=== PATIENT | male | born 1940 | race Caucasian/White ===

== ENCOUNTER 2019-01-14 14:44 | Inpatient (IN) ==
--- NOTE | 2019-01-14 16:03 | ED EKG INTERP ---
This chart was entered by Sandy Dominguez Scribe, acting as scribe for Vesna Tan MD. EKG Interpretation - EKG Time of EKG reading by physician:: 15:10 EKG Read and Signed by:: Vesna Tan EKG Interpretation (*Must complete 3 of following elements*): Abnormal ( inferior infarct, age undetermined; possible anterior infarct, age undetermined) Rate: 62 Rhythm: undetermined rhythm Comments: minimal voltage criteria for LVH, may be normal variant; Attestation - Physician/ FAUSTO Attestation The physician spent face to face time with patient:: No Advanced Practice Provider documentation review:: Supervising physician onsite and consulted in the evaluation and care of this patient. The physician did not have a face to face encounter with the patient. This chart was documented by the indicated scribe, (Sandy Dominguez Scribe) and accurately reflects the services I performed and decisions made by me, Vesna Tan MD, as attested by the provider's signature.
[2019-01-14] MEDS ORDERED: ASPIRIN PO ONE (16:20)
--- NOTE | 2019-01-14 16:31 | EKG Report ---
Test Performed on : 01/14/2019 3:50:02 PM Test Reason : CHEST PAIN Blood Pressure : / mmHG Vent. Rate : 056 BPM Atrial Rate : 062 BPM P-R Int : 000 ms QRS Dur : 090 ms QT Int : 406 ms P-R-T Axes : 000 -08 011 degrees QTc Int : 391 ms Undetermined rhythm Minimal voltage criteria for LVH, may be normal variant Inferior infarct , age undetermined Possible Anterior infarct , age undetermined Abnormal ECG When compared with ECG of 10-SEP-2018 15:38, Current undetermined rhythm precludes rhythm comparison, needs review Borderline criteria for Anterior infarct are now present Inferior infarct is now present Unconfirmed Result
[2019-01-14 16:37] LABS: INR 0.92; PROTIME 13.1 Seconds (11.0-16.0); PTT 28.6 Seconds (22.3-41.8)
[2019-01-14 16:38] LABS: BASO# 0.02 X1000 (0.0-0.2); BASO% 0.3 % (0.0-0.8); EOS# 0.13 X1000 (0.0-0.7); EOS% 1.7 % (0.0-10.0); HEMATOCRIT 43.1 % (42.0-52.0); HEMOGLOBIN 14.8 g/dL (14.0-18.0); LYMPH# 3.02 X1000 (1.2-3.4); LYMPH% 39.7 % (20.5-51.1); MCH 31.1 PG (27-31); MCHC 34.3 g/dL (33-37); MCV 90.5 FL (81-99); MONO% 11.8 % (1.7-9.3); MPV 9.8 FL (7.4-10.4); NEUT# 3.53 X1000 (1.4-6.5); NEUT% 46.5 % (42.2-75.2); PLT 214 X1000 (130-400); RBC 4.76 XMIL (4.7-6.1); RDW 12.3 % (11.5-14.5)
[2019-01-14 16:39] LABS: AGAP 12; ALB/GLOB RATIO 1.9; ALBUMIN 4.3 g/dL (3.5-5.0); ALKALINE PHOSPHATASE 68 U/L (32-122); BUN 16 mg/dL (8-22); CALCIUM 9.2 mg/dL (8.8-10.2); CHLORIDE 95 mmol/L (98-107); COSMO 267; CREATININE 1.1 mg/dL (0.7-1.2); ESTIMATED GFR > 60; GLUCOSE 93 mg/dL (70-104); GOT 25 U/L (10-34); GPT 26 U/L (10-44); POTASSIUM 5.1 mmol/L (3.5-5.1); SODIUM 133 mmol/L (136-145); TCO2 26 mmol/L (25-35); TOTAL BILIRUBIN 0.23 mg/dL (0.20-1.00); TOTAL PROTEIN 6.6 g/dL (6.3-8.3)
[2019-01-14 16:41] LABS: CK PROFILE 226 U/L (24-204)
[2019-01-14 16:58] LABS: CK-MB 11.32 ng/mL (0.0-5.0)
[2019-01-14] MEDS ORDERED: NITROGLYCERIN 50 MG/D5W 50 MG/250 ML IV.SOLN IV SCH (17:15)
--- NOTE | 2019-01-14 17:23 | Diag Imaging Result Doc PS360 ---
EXAM: CHEST-2 VIEWS HISTORY: CHEST PAIN TECHNIQUE: Chest two views COMPARISON: 10/10/2017 FINDINGS: The lungs are hyperexpanded the heart is not enlarged. The vessels are not distended. Sternal wires are present. There are no infiltrates. No pleural effusions. IMPRESSION: No acute abnormality. Electronically signed by Jimmy Roblero 01/14/2019 5:21 PM
--- NOTE | 2019-01-14 17:47 | PROVIDER DOCUMENTATION ---
HPI-Chest Pain - General Chief Complaint: Chest Pain Stated Complaint: CHEST PAIN Time Seen by Provider: 01/14/19 16:17 Source: patient Allergies/Adverse Reactions: Patient Allergies Allergy/AdvReac Type Severity Reaction Status Date / Time No Known Allergies Allergy Verified 01/14/19 19:37 Home Medications: Home Medication List Medication Instructions Recorded Confirmed Last Taken Type Aspirin 81 mg PO DAILY 08/01/15 01/14/19 01/14/19 08:00 History Ramipril [Altace] 10 mg PO BID 08/01/15 01/14/19 01/14/19 08:00 History Tamsulosin [Flomax] 0.4 mg PO BID 08/01/15 01/14/19 01/14/19 08:00 History Gabapentin 600 mg PO HS 07/10/17 01/14/19 01/13/19 History Omeprazole 40 mg PO DAILY 07/10/17 01/14/19 01/14/19 08:00 History Folic Acid 1 mg PO DAILY 01/15/19 01/15/19 01/14/19 09:00 History 1mg Loratadine 10 mg PO DAILY 01/15/19 01/15/19 01/14/19 09:00 History Multivitamin with Minerals 1 each PO DAILY 01/15/19 01/15/19 01/14/19 09:00 History [Multi-Vit 55 Plus] Adams-3 Fatty Acids/Fish Oil 1,000 mg PO DAILY 01/15/19 01/15/19 01/14/19 09:00 History [Adams-3 1,000 mg Softgel] Psyllium Seed [Metamucil] 260 gm PO DAILY 01/15/19 01/15/19 01/14/19 09:00 History Simvastatin [Zocor] 20 mg PO DAILY 01/15/19 01/15/19 01/13/19 21:00 History Ubidecarenone [Co Q10] 200 mg PO DAILY 01/15/19 01/15/19 01/14/19 09:00 History - History of Present Illness-CP Nature of Presenting Problem: 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 Location: reports: substernal Review of Systems - Adult - REVIEW OF SYSTEMS - ADULT Constitutional: reports: no symptoms reported Eyes: reports: no symptoms reported Ears, Nose, Mouth & Throat: reports: no symptoms reported Cardiovascular: reports: chest pain. denies: edema, heart murmur, irregular heart rate, orthopnea, palpitations, poor circulation, PND, syncope Respiratory: reports: no symptoms reported Gastrointestinal: reports: no symptoms reported Genitourinary: reports: no symptoms reported Musculoskeletal: reports: no symptoms reported Integumentary: reports: no symptoms reported Neurological: reports: no symptoms reported Psychiatric: reports: no symptoms reported Endocrine: reports: no symptoms reported Hematologic/Lymphatic: reports: no symptoms reported Allergic/Immunologic: reports: no symptoms reported All Other Systems: Reviewed and Negative Past History - Adult - PAST MEDICAL HISTORY-ADULT Review of Records: reports: Nursing Assessment Review, Medications Reviewed Cardiovascular: reports: CAD, HTN, hyperlipidemia Respiratory: reports: denies history Gastrointestinal: reports: denies history Obstetrical/Gynecological: reports: denies history Genitourinary: reports: denies history Musculoskeletal: reports: denies history Neurological: reports: other (neuropathy) Endocrine/Immune: reports: denies history Other Conditions: reports: denies history - PRIOR SURGERIES/PROCEDURES Surgical/Procedure History: reports: orthopedic (extremity) (total knee), other (open heart, lungs) - IMMUNIZATION STATUS Childhood Immunizations: See Nurse Assessment Flu Vaccine: See Nurse Assessment - FAMILY HISTORY Family History: reviewed, not pertinent Physical Exam-General - PHYSICAL EXAM-ADULT Initial Vital Signs Reviewed: Yes - CONSTITUTIONAL General Appearance: appears well, alert, other (currently has CP 6/10 and elevated BP) - EYES Eyes: PERRL/EOMI, pink conjunctivae - HEAD, EARS, NOSE, MOUTH & THROAT HENMT: moist mucous membranes - NECK Neck: full range of motion, supple - RESPIRATORY Respiratory: lungs clear, normal breath sounds, no pleuratic chest pain, no respiratory distress, no accessory muscle use - CARDIOVASCULAR Cardiovascular: normal peripheral pulses, regular rate, rhythm - GASTROINTESTINAL (ABDOMEN) Abdominal Exam: non tender, soft, no organomegaly, no pulsatile mass - LYMPHATIC Lymphatic: no adenopathy - MUSCULOSKELETAL Extremity: normal range of motion, non-tender, normal gait, normal inspection - SKIN Integumentary: normal color, normal turgor, warm/dry - NEUROLOGIC Neurologic: grossly normal, no motor/sensory deficits - PSYCHIATRIC Psych/Mental Status: normal mood/affect, normal thought content, normal thought process, oriented x 3 - HEART Score HEART Score: History: Moderately Suspicious HEART Score: ECG: Normal HEART Score: Age: > or = 65 Years HEART Score: Risk Factors for Atherosclerotic Disease: > or = 3 Risk Factors or History of Atherosclerotic Disease Progress - PLAN OF CARE/RESULTS Progress/Plan/Lab Results: Laboratory Results - last 24 hr 01/14/19 01/14/19 01/14/19 18:49 18:54 18:54 Magnesium 2.2 Troponin T 0.012 Urine Source CATH Urine Color YELLOW Urine Turbidity CLEAR Urine pH 7.0 Ur Specific [place] 1.001 Urine Protein NEGATIVE Ur Glucose (Stick) NEGATIVE Ur Ketones (Stick) NEGATIVE Urine Blood NEGATIVE Urine Nitrite NEGATIVE Urine Bilirubin NEGATIVE Urobilinogen Dipstick NORMAL Urine Leukocytes NEGATIVE Urine WBC (Auto) <10 Urine RBC (Auto) <10 U Epithel Cells (Auto) <10 Urine Bacteria (Auto) NEGATIVE Orders Category Date Time Status Admit - [facility] Routine AdmDCTranf 01/14/19 22:58 Active Activity - Up with Assistance ORDERED Care 01/14/19 22:58 Active Cardiac Monitoring DIRECTED Care 01/14/19 16:20 Completed Prasad Cath Insertion ORDERED Care 01/14/19 18:36 Completed Intake and Output-Strict ORDERED Care 01/14/19 22:58 Active Nursing- MD Consult Request ROUTINE Care 01/14/19 22:58 Completed Oxygen Therapy- ED Nursing DIRECTED Care 01/14/19 16:20 Completed Saline Loc NOW Care 01/14/19 16:20 Inactive Vital Signs Order Q 4-HR ASSESS Care 01/14/19 22:58 Completed Vital Signs Order Q1H Care 01/14/19 22:58 Completed Z-Document. for Tele Applied ORDERED Care 01/14/19 22:58 Active Physician/Provider Consults Routine Cons 01/15/19 07:00 Ordered Heart Healthy Diet Diet 01/14/19 22:58 Completed CHEST-2 VIEWS [RAD] Stat Exams 01/14/19 16:20 Completed BASIC METABOLIC PANEL [CHEM] Routine Lab 01/15/19 03:30 Completed CBC WITH DIFF [HEME] Routine Lab 01/15/19 03:30 Completed CBC WITH ELECTRONIC DIFF [HEME] Stat Lab 01/14/19 15:25 Completed CK PROFILE [SP CHEM] Q8H Lab 01/15/19 03:30 Completed CK PROFILE [SP CHEM] Q8H Lab 01/15/19 11:04 Completed CK PROFILE [SP CHEM] Stat Lab 01/14/19 15:25 Completed COMPREHENSIVE METABOLIC PANEL [CHEM] Stat Lab 01/14/19 15:25 Completed MAGNESIUM [CHEM] Routine Lab 01/15/19 03:30 Completed MAGNESIUM [CHEM] Stat Lab 01/14/19 18:54 Completed PRO B-NATRIURETIC PEPTIDE Stat Lab 01/14/19 15:25 Completed PROTIME WITH INR [COAG] Stat Lab 01/14/19 15:25 Completed PTT [COAG] Stat Lab 01/14/19 15:25 Completed TROPONIN T Q8H Lab 01/15/19 03:30 Completed TROPONIN T Q8H Lab 01/15/19 11:04 Completed TROPONIN T Stat Lab 01/14/19 15:25 Completed TROPONIN T Stat Lab 01/14/19 18:54 Completed UA NIMS W/REFLEX CULT [URINALYSIS] Stat Lab 01/14/19 18:49 Completed Acetaminophen [Tylenol] Med 01/14/19 22:58 Active 650 mg PO Q6H PRN PRN Aspirin Med 01/14/19 16:20 Discontinued 325 mg PO NOW ONE Aspirin Med 01/15/19 09:00 Active 81 mg PO DAILY Enoxaparin [Lovenox] Med 01/15/19 06:00 Active 40 mg SUBQ DAILY@0600 Gabapentin [Neurontin] Med 01/15/19 21:00 Active 600 mg PO HS Morphine Med 01/14/19 21:42 Active 2 mg IV Q3H PRN PRN Nitroglycerin Med 01/14/19 21:42 Active 1 inch TOP Q6H PRN PRN Nitroglycerin 50 mg/D5w Med 01/14/19 17:15 Discontinued 50 mg in 250 ml IV As Directed Omeprazole [Prilosec] Med 01/15/19 07:00 Active 40 mg PO DAILY@0700 Ondansetron [Zofran] Med 01/14/19 22:58 Active 4 mg IV Q4H PRN PRN Ramipril [Altace] Med 01/14/19 21:45 Discontinued 10 mg PO BID Tamsulosin [Flomax] Med 01/15/19 09:00 Active 0.4 mg PO BID Oxygen Device Routine Oth 01/14/19 22:58 Completed Pulse Oximetry Routine Oth 01/14/19 22:58 Completed Telemetry [OM.EQ] Routine Oth 01/14/19 22:58 Active EKG [EKG] Routine Ther 01/15/19 08:00 Completed EKG [EKG] Stat Ther 01/14/19 16:20 Draft EKG [EKG] Stat Ther 01/14/19 18:26 Draft Echo Spec/Color Dop W/O Contra Routine Ther 01/15/19 08:00 Completed Transfer/Admit Order [TRANSFER] Routine Transfer 01/14/19 21:45 Completed was 6/10 before nitro drip, currently 19:01 1-2/10, feels better, BP better, will likely soon change to po, s/o to Don with trop #2 pending Result Diagrams: 01/15/19 03:30 01/15/19 03:30 - CONSULTS/PCP/HOSPITALIST Notification #1 *Consult/PCP/Hospitalist*: Dr Perkins Time Discussed: 20:46 Consult Disposition: Admit - CHANGE OF SHIFT REPORT (ED Provider) 1 Report Given and Care Transferred to:: Dominick Ochoa Time of Transfer: 19:00 Items Pending: Labs (trop and EKG both #2) Departure - Departure Date of Disposition Decision: 01/14/19 Time of Disposition Decision: 04:00 DIAGNOSIS: Chest pain Qualifiers: Chest pain type: chest pain due to myocardial ischemia Ischemic chest pain type : stable angina pectoris Qualified Code(s): I20.8 - Other forms of angina pectoris Disposition: ADMITTED INPATIENT 09 Certified Medical Emergency: Emergent Condition: Stable - Critical Care Note This patient required my direct & personal management of CC.: No Attestation - Physician/ FAUSTO Attestation The physician spent face to face time with patient:: Yes Advanced Practice Provider documentation review:: Supervising physician onsite and consulted in the evaluation and care of this patient. The physician did have a face to face encounter with the patient.
--- NOTE | 2019-01-14 18:24 | ED EKG INTERP ---
This chart was entered by Sandy Dominguez Scribe, acting as scribe for Vesna Tan MD. EKG Interpretation - EKG Time of EKG reading by physician:: 15:50 EKG Read and Signed by:: Vesna Tan EKG Interpretation (*Must complete 3 of following elements*): Abnormal ( inferior infarct, age undetermined; possible anterior infarct, age undetermined) Rate: 56 Rhythm: undetermined rhythm Comments: minimal voltage criteria for LVH, may be normal variant Attestation - Physician/ FAUSTO Attestation The physician spent face to face time with patient:: Yes Advanced Practice Provider documentation review:: Supervising physician onsite and consulted in the evaluation and care of this patient. The physician did have a face to face encounter with the patient. This chart was documented by the indicated scribe, (Sandy Dominguez Scribe) and accurately reflects the services I performed and decisions made by me, Vesna Tan MD, as attested by the provider's signature.
[2019-01-14 19:03] LABS: URINE SOURCE CATH
[2019-01-14 19:06] LABS: BILIRUBIN URINE NEGATIVE (NEGATIVE); BLOOD URINE NEGATIVE (NEGATIVE); COLOR YELLOW; GLUCOSE URINE NEGATIVE (NEGATIVE); KETONE URINE NEGATIVE (NEGATIVE); LEUKOCYTES URINE NEGATIVE (NEGATIVE); NITRITE URINE NEGATIVE (NEGATIVE); PROTEIN URINE NEGATIVE (NEGATIVE); SP GRAVITY URINE 1.001; TURBIDITY URINE CLEAR (CLEAR); UR EPITHELIAL CELLS <10 /HPF (<10); URINE BACTERIA NEGATIVE /HPF; URINE RBC <10 /HPF (<10); URINE WBC <10 /HPF (<10); UROBILINOGEN URINE NORMAL (NORMAL)
[2019-01-14] MEDS ORDERED: MORPHINE IV PRN (21:42)
[2019-01-14] MEDS ORDERED: NITROGLYCERIN TOP PRN (21:42)
[2019-01-14] MEDS ORDERED: RAMIPRIL 10 MG PO SCH (21:45)
[2019-01-14] MEDS: ALTACE PO SCH (22:45)
[2019-01-14] MEDS ORDERED: ZOFRAN IV PRN (22:58)
[2019-01-14] MEDS ORDERED: TYLENOL PO PRN (22:58)
[2019-01-15 04:03] LABS: BASO# 0.02 X1000 (0.0-0.2); BASO% 0.3 % (0.0-0.8); EOS# 0.23 X1000 (0.0-0.7); EOS% 3.1 % (0.0-10.0); HEMATOCRIT 41.1 % (42.0-52.0); HEMOGLOBIN 13.9 g/dL (14.0-18.0); IMM GRAN# 0.02 X1000 (0.0-0.04); IMM GRAN% 0.3 % (0.0-0.5); LYMPH# 3.28 X1000 (1.2-3.4); LYMPH% 44.6 % (20.5-51.1); MCH 30.9 PG (27-31); MCHC 33.8 g/dL (33-37); MCV 91.3 FL (81-99); MONO# 0.76 X1000 (0.11-0.59); MONO% 10.3 % (1.7-9.3); MPV 9.2 FL (7.4-10.4); NEUT# 3.05 X1000 (1.4-6.5); NEUT% 41.4 % (42.2-75.2); PLT 209 X1000 (130-400); RDW 12.4 % (11.5-14.5); WBC 7.36 X1000 (4.8-10.8)
[2019-01-15 04:13] LABS: AGAP 11; BUN 13 mg/dL (8-22); CHLORIDE 99 mmol/L (98-107); COSMO 269; CREATININE 1.1 mg/dL (0.7-1.2); ESTIMATED GFR > 60; GLUCOSE 81 mg/dL (70-104); MAGNESIUM 2.1 mg/dL (1.5-2.7); POTASSIUM 4.7 mmol/L (3.5-5.1); SODIUM 135 mmol/L (136-145); TCO2 25 mmol/L (25-35)
--- NOTE | 2019-01-15 05:49 | HISTORY AND PHYSICAL ---
ADDENDUM: I have seen and examined Mr. Izquierdo today in the ER. The was at the bedside at the time of the encounter. HISTORY OF PRESENT ILLNESS: Mr. Izquierdo is a 78-year-old male with extensive coronary artery disease status post triple bypass (CABG) and 3 stents after the CABG. Follows up with Dr. Antonio. He also has remarkable peripheral vascular disease status post left superficial femoral artery atherectomy and DCB balloon angioplasty of the superficial femoral artery by Dr. Ferreira on 09/17/2018. Mr. Izquierdo presented this time because of ongoing chest pain which is exertional in character and it improves with rest which has been progressively getting worse. Upon presenting to the emergency department, he was found to have a blood pressure of 202/76. He was initially started on nitroglycerin drip. It has improved and we have been requested for admission. ASSESSMENT: 1. Chest pain which is concerning for coronary artery disease. Patient's EKGs and troponins so far have been unremarkable. However, he has a remarkable history of coronary artery disease and peripheral artery disease. I think it is reasonable to keep him overnight and risk stratify him in the morning. Will get Cardiology also to see him. 2. We are going to do troponin x3 and we will repeat the EKG in the morning, echocardiogram and Cardiology consult. 3. Severe uncontrolled hypertension. This could have contributed to some of the chest pain. It has significantly improved on the nitroglycerin drip. We are going to start him on his oral medications, hopefully take the drip off and get him in the cardiac unit. 4. History of coronary artery disease, status post coronary artery bypass graft and stents noted. 5. Severe peripheral vascular disease with intermittent claudication noted. cc: Armando Phipps MD
[2019-01-15] MEDS: LOVENOX SUBQ SCH (06:12)
--- NOTE | 2019-01-15 06:57 | HISTORY AND PHYSICAL ---
PRIMARY CARE PROVIDER: Laurent Erickson MD REGULATORY PROCESS MANAGER: Abimael Antonio MD DATE AND TIME: 01/14/2019 at 2115. CHIEF COMPLAINT: Chest pain. HISTORY OF PRESENT ILLNESS: Mr. Izquierdo is a 78-year-old male who presented to the ER this afternoon at 1444 on 01/14/2019. The patient states that approximately 2 hours prior to his arrival, he was at the grocery store, was walking around and shopping, and began having pressure type chest pain that was in the center of his chest and was nonradiating. The patient did not report any associated symptoms. He denied any dizziness, lightheadedness, near syncope, shortness of breath, diaphoresis, nausea or vomiting. The patient states that he did go to his car, sat down and did return home, though even with rest, his chest pain did not subside. He did decide to call an ambulance and go to the ER for further evaluation. It was noted in the ER nurse's note that he was given 325 mg of aspirin prior to arrival as well as a 0.4 mg nitroglycerin sublingual. EMS reported to ER staff that his blood pressure went from 221 systolic to 121 systolic after receiving nitroglycerin and that he did receive a small fluid bolus prior to arrival. Though upon arrival to the ER, the patient was having chest pain approximately 7 to 8 out of 10. He was placed on a nitroglycerin drip. The patient states at this time that his pain has improved and is approximately now a 3, though he is still experiencing some chest pain in the center of his chest. He is denying any other symptoms as well. He denies headache, abdominal pain, nausea, vomiting, or diarrhea. He denies any pain or swelling in extremities. The patient does report numbness in his bilateral lower extremities though he does have a long history of having peripheral neuropathy and he reports this is not of new onset. He does have a history of coronary artery disease status post 4-vessel coronary artery bypass graft and subsequent stent placement as well. He states this was performed in 1995 at a hospital in [place], [place]. The patient reported that he did not have a heart attack. He states that his brother at that time had just from a myocardial infarction and that he did inform his primary care physician of this. They did decide to do further testing given his family history and this is when they found his coronary artery disease and did decide to go ahead and do his CABG. The patient states he has not had heart cath in approximately 20 years , though he has had a stress test done since that time, though it has been approximately 6 years since his last stress test. Upon arrival to the ER, the patient's initial vital signs were temperature 97.5 , heart rate 61, respirations 18, blood pressure 202/76 and oxygen saturation was 98% on room air. His CK enzymes are elevated though troponins remain stable at this time with the initial being 0.011 and a repeat of 0.012. Electrolytes are all within normal limits except that his potassium is at the higher limit of normal at 5.1. Chest x-ray did not show any acute abnormalities. This was per Radiology. EKGs performed in the ER from what I can tell did appear to be sinus bradycardia at a rate of 57 with a first degree AV block. His IA interval was 0.28. There did not appear to be any ST depression or ST elevation. He does have inverted T-wave in lead III, though looking at a previous EKG from August 2018, the inverted T-waves in lead III do appear to be present on this EKG as well. His QTC was 406. We did feel at this time that the patient can be transitioned of the nitroglycerin drip. We will go ahead and give him his already prescribed antihypertensive Ramipril. We will implement nitroglycerin for chest pain if needed as well as some p.r.n. morphine. He will be placed in [facility]IC for close monitoring. REVIEW OF SYSTEMS: A 14-point review of systems was conducted with the patient and all were negative except for pertinent positives mentioned above in HPI. PAST MEDICAL HISTORY: 1. Coronary artery disease status post 4-vessel coronary artery bypass graft and subsequent stents approximately 6 months after that. His CABG was performed in 1995 at a hospital in [place], [place]. 2. Hyperlipidemia. 3. Hypertension. 4. Peripheral neuropathy. 5. Benign prostatic hypertrophy. 6. Peripheral artery disease status post stent placement and left superficial femoral artery atherectomy and balloon angioplasty of the superficial femoral artery in August 2018. PAST SURGICAL HISTORY: 1. Four vessel coronary artery bypass graft. 2. Cardiac stent placement. 3. Left lower extremity stent placement and recent left superficial femoral artery atherectomy and balloon angioplasty of the superficial left femoral artery with Dr. Ferreira in August 2018. 4. Tonsillectomy. 5. Colon polyp removal. 6. Left total knee replacement. 7. 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 SOCIAL HISTORY: The patient is a former smoker. He did smoke 2-1/2 packs a day for approximately 20 years though did quit smoking in 1986. He does report occasional wine use though there was no known illicit drug use. He is . His was present at bedside. FAMILY HISTORY: Positive for his mother and father both passing away secondary to strokes, though his father did have a history of a mild heart attack at age 65. He did have a brother who secondary to a myocardial infarction at age 50. ALLERGIES: The patient does not report any allergic reactions to medications though he did have an adverse reaction to beta austin. He states that he was put on a beta austin after his coronary artery bypass graft and did experience symptomatic bradycardia with his heart rate getting into the 40s. The patient states that his heart rate normally without beta blockers did usually run in the 60s and low 70s. HOME MEDICATIONS: 1. Aspirin 81 mg p.o. daily. 2. Gabapentin 600 mg p.o. nightly. 3. Omeprazole 40 mg p.o. daily. 4. Ramipril 10 mg p.o. b.i.d. 5. Flomax 0.4 mg p.o. b.i.d. DIAGNOSTIC STUDIES: White blood cell count 7.6, hemoglobin 14.8, hematocrit 43.1, platelet count 214. PT 13.1, INR 0.92, PTT 28.6. Sodium 133, potassium 5.1, chloride 95, serum bicarb 26, BUN 16, creatinine 1.1 with a GFR greater than 60, glucose 93, calcium 9.2, magnesium 2.2. Liver function tests are within normal limits. CK 226, CK index 5, CK MB 11.32, troponin initial was 0.011 with repeat of being 0.012. ProBNP was 54. Urinalysis was obtained via catheter, was negative for protein, glucose, ketones, blood, nitrites, leukocytes, white blood cells or bacteria. EKG does appear to be sinus bradycardia at a rate of 57 with a first degree AV block. The patient's IA interval is 0.28. QTC was 406. Chest x-ray does not show any acute abnormalities. This was per Radiology. PHYSICAL EXAMINATION: VITAL SIGNS: Temperature 97.5, heart rate 58, respirations 16, blood pressure 125/52, oxygen saturation 97% nasal cannula at 2 liters. GENERAL: Mr. Izquierdo is a very pleasant 78-year-old male. He was resting on the ER stretcher. He was in no acute distress. He was reporting that though his chest pain had improved from 8 out of 10, he still did have some pain, now reporting 3 out of 10. He was awake and alert and able to answer all questions appropriately. HEENT: Head is atraumatic, normocephalic. Pupils are equal, round and reactive to light, 3 mm bilaterally and brisk. Oral mucosa is moist. Oropharynx clear. NECK: Supple. Trachea midline. No carotid bruits noted on auscultation bilaterally. No JVD noted. CARDIOVASCULAR: The patient has normal S1 and S2. No murmurs, gallops or rubs appreciated. Regular rate and rhythm. PULMONARY: The patient has symmetrical chest expansion bilaterally. Lungs sounds were clear to auscultation in bilateral full boss. ABDOMEN: Soft, nontender, nondistended. Bowel sounds were present in all four quadrants and were normoactive. EXTREMITIES: No cyanosis, clubbing or edema noted. Pulse and motor were intact in all extremities. Sensory is intact except for in the patient's bilateral lower extremities from approximately mid calf down, though this is not of new onset. The patient does have a long- standing history of peripheral neuropathy. Radial pulses were 2+. Pedal pulses were 1+. The patient does have hypertrophic toenails noted. INTEGUMENTARY: The patient's skin is pink, warm, and dry. NEUROLOGIC: The patient is alert and oriented x4. There are no focal neurologic deficits noted. The only neurologic abnormality is that the patient is reporting some numbness in his bilateral lower extremities though he reports this is not of new onset and has not worsened. He does have a long history of peripheral neuropathy. ASSESSMENT AND PLAN: 1. Chest pain. For further evaluation of this, we have placed the patient with a heart healthy diet to be n.p.o. after midnight for evaluation by Cardiology in the morning. He was initially on a nitroglycerin drip though we have been able to transition the patient off this. His blood pressure after discontinuation of the drip and being given his home medication of ramipril, is maintaining within normal limits with the last reading of 125/45. The patient reports that his chest pain has improved, though he is still experiencing some pressure and chest pain in the center of his chest at a 3 out of 10. We have placed nitroglycerin paste and morphine as needed for chest pain. We will continue with aspirin therapy daily. We will continue with a series of cardiac enzymes. We will do a repeat EKG and an echocardiogram in the morning. We will await Cardiology's further evaluation and recommendations, and follow his condition closely. 2. Coronary artery disease status post coronary artery bypass graft and stents. Will continue with treatment as mentioned above for #1. 3. Hypertension. We have continued his ramipril. 4. Hyperlipidemia. 5. Peripheral neuropathy. Will continue his gabapentin. 6. Deep venous thrombosis prophylaxis will be provided with Lovenox 40 mg subcu daily. He has been placed in CIC with telemetry for close monitoring. Will do vital signs per CIC protocol. Will repeat CBC, BMP, magnesium and cardiac enzymes later on in the morning. Other orders and recommendations pending hospital course, diagnostic studies and physician evaluation. Dictated by FREDDY Marlow for Armando Phipps MD cc: Armando Phipps MD MTDD
--- NOTE | 2019-01-15 07:52 | EKG Report ---
Test Performed on : 01/15/2019 07:16:39 AM Test Reason : Chest Pain Blood Pressure : / mmHG Vent. Rate : 047 BPM Atrial Rate : 047 BPM P-R Int : 290 ms QRS Dur : 086 ms QT Int : 432 ms P-R-T Axes : 073 -04 014 degrees QTc Int : 382 ms Sinus bradycardia. with sinus arrhythmia. with 1st degree AV block. Inferior infarct , age undetermined Cannot rule out Anterior infarct , age undetermined Abnormal ECG When compared with ECG of 14-JAN-2019 19:16, (Unconfirmed) Inferior infarct is now present Confirmed by Jd Barragan MD ([id number]) on 01/15/2019 8:47:02 AM
--- NOTE | 2019-01-15 07:57 | EKG Report ---
Test Performed on : 01/14/2019 7:16:38 PM Test Reason : chest pain Blood Pressure : / mmHG Vent. Rate : 057 BPM Atrial Rate : 057 BPM P-R Int : 268 ms QRS Dur : 100 ms QT Int : 418 ms P-R-T Axes : 051 003 026 degrees QTc Int : 406 ms Sinus bradycardia. with 1st degree AV block. Otherwise normal ECG When compared with ECG of 14-JAN-2019 15:50, (Unconfirmed) Previous ECG has undetermined rhythm, needs review Unconfirmed Result
[2019-01-15] MEDS: PRILOSEC PO SCH (09:25)
[2019-01-15] MEDS: ALTACE PO SCH ×2 (09:25→20:19)
[2019-01-15] MEDS: ASPIRIN PO SCH (09:25)
[2019-01-15] MEDS: FLOMAX PO SCH ×2 (09:26→20:19)
[2019-01-15 13:08] LABS: CK INDEX 4.2 (0.0-2.5); CK-MB 9.32 ng/mL (0.0-5.0)
[2019-01-15] MEDS: RANEXA PO SCH ×2 (14:49→20:19)
[2019-01-15] MEDS: LOPRESSOR PO SCH (14:51)
--- NOTE | 2019-01-15 14:52 | CARDIOLOGY CONSULTATION ---
DATE: 01/15/2019 HISTORY OF PRESENT ILLNESS: Mr. Izquierdo is a 78-year-old gentleman, who had chest pain approximately 2 hours prior to coming to the hospital. He was walking in the store when he developed retrosternal chest discomfort. He denied any lightheadedness, shortness of breath, nausea or vomiting. He took nitroglycerin, describes his chest pain as a 7/10. He subsequently called 911, came to the emergency room and was admitted, and the patient has been pain-free since then. Prior to this episode a couple of months back, he has noticed some other episode of mild chest discomfort. He has extensive coronary artery disease, has undergone 4-vessel coronary artery bypass grafting and subsequent stent placements, all at [place], [place]; the last one was in 1995. When he came to the emergency room, his blood pressure was elevated at 202/76. Electrocardiogram revealed normal sinus rhythm, nonspecific ST-T changes, first-degree AV block. Electrocardiogram done today was similar. REVIEW OF SYSTEMS: General: A 14-point review of system was done. GI system: There is no history of nausea, vomiting, diarrhea. There is no history of hematemesis or melena. Central nervous system: No focal weakness to suggest a CVA, TIA. system: There is no dysuria or hematuria. PAST MEDICAL HISTORY: 1. Coronary artery disease, status post coronary artery bypass grafting 1995. History of subsequently stent placement in [place], [place]. 2. Hypertension. 3. Hyperlipidemia. 4. Peripheral vascular disease, status post stent placement to the lower extremity. HOME MEDICATIONS: Aspirin, gabapentin, omeprazole, ramipril 10, Flomax 0.4, simvastatin 20. SOCIAL HISTORY: Patient is a former smoker. He used to smoke 2 to 2-1/2 packs of cigarettes over 20 years. FAMILY HISTORY: Has positive family history of coronary artery disease. PHYSICAL EXAMINATION: Vital Signs: On examination, the blood pressure was 152/71. Cardiovascular System: Normal jugular venous pressure. There no thyromegaly. No carotid bruit. First and second heart sounds were heard. There was no S3 gallop. Respiratory System: Normal air entry. There are no crepitations or rhonchi. Abdomen: Soft, nontender. There was no guarding or rigidity. Bowel sounds were heard. Central nervous system: Alert and was moving all 4 extremities. Examination of extremities revealed no pedal edema. HEENT: Atraumatic, normocephalic. Pupils were equal and reacting to light, LABORATORY EXAMINATION: Revealed first set of CK was normal; second CK was 223; CK-MB of 9.34. Troponins were within normal limits. ASSESSMENT: Mr. Pérez Izquierdo is a 78-year-old gentleman with history of hypertension, peripheral vascular disease, coronary artery disease, status post coronary artery bypass grafting, status post stent placements. Following his bypass grafting in [place], [place], he was admitted with chest discomfort. His 2 troponins were normal. CK-MB was abnormal. He is currently pain-free. PLAN: 1. We will get an echocardiogram to assess cardiac and valvular function. 2. We will get 2 more serial cardiac enzymes to make sure there is no non-Q-wave myocardial infarction. If there is non-Q-wave myocardial infarction, we will plan for a left heart catheterization, and he would like to be transferred to [facility] for same. So, we will await the lab report on the cardiac enzymes. 3. As far as medications are concerned, we will add low-dose beta-blockers 25 mg of Lopressor twice daily, in addition to Ranexa 500 mg twice daily. 4. Hypertension. Continue with his Altace. 5. Hyperlipidemia. He is on simvastatin 20. I have not made any changes at the present time. cc: Lc Ortiz MD
--- NOTE | 2019-01-15 15:28 | PROGRESS NOTE ---
DATE: 01/15/2019 SUBJECTIVE: Patient resting comfortably in bed. OBJECTIVE: Vital signs: Temperature 99 degrees, pulse 83, respiratory rate 18, blood pressure 152/71, oxygen saturation is 100%. HEENT: Patient is atraumatic, normocephalic. Cardiovascular system: S1, S2. Respiratory system: Has evidence of good air entry bilaterally. Abdomen: Soft, nontender. No masses felt. Extremities: No evidence of edema. Central nervous system: No obvious focal deficit noted. LABORATORY DATA: WBC 7.36 hematocrit is 41.1, with a platelet count of 207,000. Sodium is 135 potassium is 4.7, chloride is 99, bicarbonate is 25, BUN is 13, creatinine is 1.3. ASSESSMENT AND PLAN: 1. Chest pain/history of coronary artery disease/history of coronary artery bypass grafting (CABG)/history of percutaneous coronary intervention (PCI). Continue to follow up on serial cardiac enzymes. Continue the patient on aspirin, beta [place]in, as well as a statin. Cardiology currently following. 2. Hypertension. Continue current antihypertensive regimen. 3. Hyperlipidemia. Continue statin. 4. Peripheral neuropathy. Continue gabapentin. 5. Deep vein thrombosis (DVT) prophylaxis. Lovenox. 6. Gastrointestinal (GI) prophylaxis. PPI. cc: Eduardo Hartmann MD
[2019-01-15] MEDS: METAMUCIL POWDER PACKET PO SCH (17:35)
[2019-01-15] MEDS: FOLIC ACID PO SCH (17:35)
[2019-01-15] MEDS: CLARITIN PO SCH (17:35)
[2019-01-15 19:52] LABS: CK INDEX 3.8 (0.0-2.5); CK-MB 8.09 ng/mL (0.0-5.0)
[2019-01-15] MEDS ORDERED: ZOCOR PO SCH (21:00)
[2019-01-15] MEDS ORDERED: NEURONTIN PO SCH (21:00)
[2019-01-15] MEDS ORDERED: LOPRESSOR PO SCH (21:00)
[2019-01-16] MEDS: PRILOSEC PO SCH (06:28)
--- NOTE | 2019-01-16 07:13 | EKG Report ---
Test Performed on : 01/16/2019 06:22:59 AM Test Reason : chest pain Blood Pressure : / mmHG Vent. Rate : 045 BPM Atrial Rate : 045 BPM P-R Int : 228 ms QRS Dur : 096 ms QT Int : 456 ms P-R-T Axes : 040 023 044 degrees QTc Int : 394 ms Sinus bradycardia. with marked sinus arrhythmia. with 1st degree AV block. Otherwise normal ECG When compared with ECG of 15-JAN-2019 07:16, Criteria for Inferior infarct are no longer present Nonspecific T wave abnormality has replaced inverted T waves in Inferior leads Confirmed by Jd Barragan MD ([id number]) on 01/17/2019 7:19:00 AM
[2019-01-16] MEDS ORDERED: COENZYME Q10 PO SCH (09:00)
[2019-01-16] MEDS ORDERED: ZOCOR PO SCH (09:00)
[2019-01-16] MEDS ORDERED: FISH OIL CONCENTRATE PO SCH (09:00)
[2019-01-16] MEDS ORDERED: CENTRUM SILVER PO SCH (09:00)
--- NOTE | 2019-01-16 09:44 | ECHO REPORT ---
ORDER DATE: 01/15/2019 MEASUREMENTS: Left ventricular end-diastolic 3.5, end-systolic 2.6, aortic root 3.5, left atrium 4.7. SUMMARY: 1. Technically difficult study due to limited acoustic window quality. 2. Mild aortic valve sclerosis demonstrated with adequate aortic valve opening evident. Peak gradient across the aortic valve is less than 10 mmHg. Mild mitral annular calcification is demonstrated. Tricuspid and pulmonic valves are without evidence of structural abnormality with trace tricuspid regurgitation. The aortic root is normal in size. 3. Normal left ventricular chamber size with mild concentric left ventricular hypertrophy is suggested. Estimated left ventricular ejection fraction appears to be at least 60%. No obvious regional wall motion abnormality can be appreciated. Left atrium is mildly enlarged. The right atrium and right ventricle are normal in size with grossly preserved right ventricular systolic function. 4. No pericardial effusion. 5. Inferior vena cava not well demonstrated. cc: Abimael Antonio MD
[2019-01-16] MEDS: ASPIRIN PO SCH (09:56)
[2019-01-16] MEDS: FLOMAX PO SCH (09:56)
[2019-01-16] MEDS: RANEXA PO SCH (09:57)
[2019-01-16] MEDS: ALTACE PO SCH (09:57)
[2019-01-16] MEDS: LOPRESSOR PO SCH (09:58)
[2019-01-16] MEDS: FOLIC ACID PO SCH (10:47)
[2019-01-16] MEDS: LOVENOX SUBQ SCH (10:47)
[2019-01-16] MEDS: CLARITIN PO SCH (10:47)
[2019-01-16] MEDS: METAMUCIL POWDER PACKET PO SCH (10:48)
[2019-01-16 13:59] VITALS: BP 192/71
--- NOTE | 2019-01-16 16:28 | DISCHARGE SUMMARY ---
ADMISSION DATE: 01/14/2019 DISCHARGE DATE: 01/16/2019 PRINCIPAL DIAGNOSIS: Chest pain, query etiology. SECONDARY DIAGNOSIS: 1. History of coronary artery disease status post coronary artery bypass graft as well as externus coronary intervention. 2. Hypertension. 3. Hyperlipidemia. 4. Peripheral neuropathy. DISCHARGE MEDICATIONS: Include the following. 1. Metoprolol 25 mg p.o. once a day. 2. Nitroglycerin 1 inch every 6 hours as needed. 3. Methimazole 1 orally daily. 4. Ranexa 500 mg p.o. twice a day. 5. Ramipril 10 mg p.o. twice a day. 6. Flomax 0.4 mg p.o. twice a day. 7. Aspirin 81 mg p.o. daily. 8. Neurontin 600 mg at bedtime. 9. Omeprazole 40 mg p.o. daily. 10. Folic acid 1 mg p.o. daily. 11. Loratadine 10 mg p.o. daily. 12. Multivitamin 1 daily. 13. [place]-3 soft gel 1 daily. 14. Coenzyme Q10 200 mg p.o. daily. 15. Simvastatin 20 mg p.o. once a day. CONSULTATIONS DONE DURING THIS HOSPITAL STAY: Dr. Lc Ortiz, cardiology. SPECIAL PROCEDURES DONE DURING THIS HOSPITAL STAY: A 2D echocardiogram 01/15/2019. HOSPITAL COURSE: Mr. Pérez Izquierdo is a 78-year-old male who has a history of coronary artery disease status post CABG as well as percutaneous coronary intervention. Admitted to the hospital because of chest pain. Acute MD was ruled out with negative cardiac enzymes. The patient was maintained on aspirin, beta-a[place], as well as Nitropaste. Had a 2D echo of the heart which showed estimated left ventricular ejection fraction of about 60%. No other cardiac workup done. The patient was seen by the cardiology team who felt the patient will be best served by being transferred to [facility]. As such, the patient will now be transferred to [facility] for further management. PHYSICAL EVALUATION: Vital Signs: Today, the vital signs were as follows: Temperature 98.2 degrees, pulse 46, respirations 18, blood pressure was 90/56, oxygen saturation is 99%. HEENT: Atraumatic, normocephalic. Cardiovascular: S1, S2. Respiratory system: Has evidence of good air entry bilaterally. Abdomen: Soft, nontender. No masses felt. Extremities: No evidence of edema. Central nervous system: No obvious focal deficit noted. PLAN: Transfer to [facility] for further management. cc: Eduardo Hartmann MD
== END 2019-01-16 14:17 | disposition short-term general hospital (02) | DRG 313 ==
LOC: SUPCPDRO → ED 14:44 → EDIPHOLD 22:30 → SUATTDRO 22:30 → 3S 01-15 09:56
PROVIDERS: ATTEND Internal Medicine
CPT/HCPCS: 51702; 71020; 71046; 80048; 80053; 81001; 82550; 82553; 83735; 83880; 84484; 85025; 85610; 85730; 93005; 93010; 93306; 96365; 96366; 96372; 96375; 99285; A9270; J1650; J2270